=== PATIENT | male | born 1975 | race African-American/Black ===

== ENCOUNTER 2017-04-02 07:35 | Inpatient (IN) ==
[2017-04-02] MEDS ORDERED: NITROGLYCERIN SL 0.4 MG TABLET SL ONE (07:58)
[2017-04-02] MEDS ORDERED: ASPIRIN 325 MG TABLET ONE (07:58)
[2017-04-02] MEDS ORDERED: ASPIRIN 325 MG TABLET PO STA (07:59)
[2017-04-02] MEDS ORDERED: NITROGLYCERIN SL 0.4 MG TABLET SL PRN (07:59)
[2017-04-02] MEDS ORDERED: ENOXAPARIN 100 MG/ML SYRINGE SUBCUT STA (07:59)
[2017-04-02] MEDS ORDERED: ENOXAPARIN 100 MG/ML SYRINGE SUBCUT ONE (08:27)
[2017-04-02 08:36] LABS: Basophils # 0.1 10*3/uL (0.0-0.2); Basophils % 1.4 % (0.0-0.8); Eosinophils # 0.5 10*3/uL (0.0-0.87); Eosinophils % 6.4 % (0.00-10.9); Hematocrit 41.3 VOL% (42.0-52.0); Hemoglobin 13.6 GM/DL (14.0-18.0); Immature Granulocytes % 0.3 %; Immature Granulocytes Absolute 0.02 #; Lymphocytes # 1.8 10*3/uL (1.4-4.0); Lymphocytes % 23.3 % (21.2-54.2); Mean Corpuscular HGB Conc 32.9 GM/DL (32-36); Mean Corpuscular Hemoglobin 26 PG (27-34); Mean Corpuscular Volume 78.2 FL (87-102); Mean Platelet Volume 11.6 FL (9.6-12.0); Monocytes # 0.5 10*3/uL (0.11-0.8); Monocytes % 6.7 % (1.7-12.7); Neutrophils # 4.9 10*3/uL (1.4-7.4); Neutrophils % 61.9 % (38.7-73.9); Platelet Count 255 T/CUMM (130-400); Red Blood Count 5.28 MC/CUMM (3.8-5.5); Red Cell Distribution Width 14.7 % (9.3-17.3); White Blood Count 7.9 T/CUMM (4-12)
[2017-04-02] MEDS ORDERED: LABETALOL 20 MG/4 ML SYRINGE IV STA (09:01)
[2017-04-02] MEDS ORDERED: LABETALOL 20 MG/4 ML SYRINGE IV ONE (09:12)
[2017-04-02] MEDS ORDERED: LABETALOL 100 MG/20 ML VIAL IV ONE (09:18)
[2017-04-02 09:20] LABS: Alanine Aminotransferase 12 U/L (16-61); Albumin 3.7 G/DL (3.4-5.0); Alkaline Phosphatase 92 U/L (45-117); Aspartate Amino Transferase 14 U/L (0-37); Bilirubin,Total < 0.39 MG/DL (0.2-1.0); Calcium 8.4 MG/DL (8.5-10.1); Total Protein 7.3 G/DL (6.4-8.3)
[2017-04-02 09:21] LABS: Blood Urea Nitrogen 22 MG/DL (7-18); Glucose 103 MG/DL (74-106); Osmolality,Calculated 283.3 MOS/KG (273-304); Potassium 3.7 MMOL/L (3.5-5.1); Sodium 141 MMOL/L (136-145)
[2017-04-02] MEDS ORDERED: niCARdipine 25 MG/10 ML VIAL IV ONE ×2 (10:20→14:25)
[2017-04-02] MEDS: niCARdipine INJ 25 MG in SODIUM CHLORIDE 0.9% 240 ML IV SCH (10:30)
[2017-04-02] MEDS ORDERED: NICOTINE 21 MG/24 HR PATCH TRANSDERM PRN (10:33)
[2017-04-02] MEDS ORDERED: MORPHINE 2 MG/1 ML SYRINGE IV PRN (10:33)
[2017-04-02] MEDS ORDERED: ONDANSETRON 4 MG/2 ML VIAL IV PRN (10:33)
[2017-04-02] MEDS ORDERED: ACETAMINOPHEN 325 MG TABLET PO PRN (10:33)
[2017-04-02] MEDS ORDERED: DOCUSATE SODIUM 100 MG CAPSULE PO PRN (10:33)
[2017-04-02 11:05] LABS: Risk Ratio 2.82; Thyroid Stimulating Hormone 1.57 uIU/ml (0.358-3.74); VLDL CHOLESTEROL 15.6 MG/DL
[2017-04-02 12:45] LABS: Barbiturates Screen,Urine Negative (Negative); Benzodiazepines Screen,Urine Negative (Negative); Cannabinoid Screen,Urine Negative (Negative); Opiate Screen,Urine Negative (Negative); Phencyclidine Screen,Urine Negative (Negative)
[2017-04-02] MEDS ORDERED: PANTOPRAZOLE 40 MG TABLET PO ONE (14:08)
[2017-04-02] MEDS ORDERED: amLODIPine 5 MG TABLET ONE (14:09)
[2017-04-02] MEDS: amLODIPine 5 MG TABLET PO SCH (14:10)
[2017-04-02] MEDS: PANTOPRAZOLE 40 MG TABLET PO SCH (14:11)
[2017-04-02] MEDS: CARVEDILOL 25 MG TABLET PO SCH ×2 (16:30→21:49)
[2017-04-02] MEDS ORDERED: niCARdipine INJ 25 MG in SODIUM CHLORIDE 0.9% 240 ML IV SCH (18:00)
[2017-04-03 06:18] LABS: Basophils # 0.1 10*3/uL (0.0-0.2); Basophils % 0.9 % (0.0-0.8); Eosinophils # 0.5 10*3/uL (0.0-0.87); Eosinophils % 5.3 % (0.00-10.9); Hematocrit 39.1 VOL% (42.0-52.0); Hemoglobin 13.1 GM/DL (14.0-18.0); Immature Granulocytes % 0.2 %; Immature Granulocytes Absolute 0.02 #; Lymphocytes # 3.6 10*3/uL (1.4-4.0); Mean Corpuscular HGB Conc 33.5 GM/DL (32-36); Mean Corpuscular Hemoglobin 26 PG (27-34); Mean Corpuscular Volume 77.1 FL (87-102); Mean Platelet Volume 12.1 FL (9.6-12.0); Monocytes # 0.6 10*3/uL (0.11-0.8); Monocytes % 7.2 % (1.7-12.7); Neutrophils % 45.4 % (38.7-73.9); Platelet Count 254 T/CUMM (130-400); Red Blood Count 5.07 MC/CUMM (3.8-5.5); Red Cell Distribution Width 14.7 % (9.3-17.3); White Blood Count 8.9 T/CUMM (4-12)
[2017-04-03 06:45] LABS: Calcium 8.5 MG/DL (8.5-10.1); Osmolality,Calculated 283.3 MOS/KG (273-304); Potassium 3.1 MMOL/L (3.5-5.1)
[2017-04-03] MEDS ORDERED: POTASSIUM CHLORIDE 20 MEQ TABLET PO ONE (07:51)
[2017-04-03] MEDS: PANTOPRAZOLE 40 MG TABLET PO SCH (08:50)
[2017-04-03] MEDS: amLODIPine 5 MG TABLET PO SCH (08:51)
[2017-04-03] MEDS: CARVEDILOL 25 MG TABLET PO SCH ×2 (08:51→21:46)
[2017-04-03] MEDS: ISOSORBIDE MONONITRATE 30 MG TABLET PO SCH (08:51)
[2017-04-03] MEDS: niCARdipine INJ 25 MG in SODIUM CHLORIDE 0.9% 240 ML IV SCH (11:16)
[2017-04-03] MEDS: ENOXAPARIN 40 MG/0.4 ML SYRINGE SUBCUT SCH (13:52)
[2017-04-04] MEDS: ISOSORBIDE MONONITRATE 30 MG TABLET PO SCH (09:40)
[2017-04-04] MEDS: PANTOPRAZOLE 40 MG TABLET PO SCH (09:40)
[2017-04-04] MEDS: CARVEDILOL 25 MG TABLET PO SCH (09:41)
[2017-04-04] MEDS: amLODIPine 5 MG TABLET PO SCH (09:41)
[2017-04-04] MEDS: niCARdipine INJ 25 MG in SODIUM CHLORIDE 0.9% 240 ML IV SCH (10:23)
[2017-04-04 12:25] VITALS: BP 155/90
[2017-04-04] MEDS: ENOXAPARIN 40 MG/0.4 ML SYRINGE SUBCUT SCH (12:55)
== END 2017-04-04 13:10 | disposition home or self-care (01) | DRG 305 ==
LOC: N.ED 07:35 → N.EDINP 09:37 → SUATTDRO 09:37 → N.TELES 19:01
PROVIDERS: ADMIT Internal Medicine; ATTEND Pediatrics